=== PATIENT | male | born 2000 | race Caucasian/White ===

== ENCOUNTER 2018-04-01 16:28 | Emergency (ER) | payer OTHER ==
[2018-04-01 16:36] VITALS: BP 114/77; PULSE 92; TEMP 97.8; BMI 22.3
--- NOTE | 2018-04-01 16:36 | PDOC ---
Rapid Medical Evaluation Time Seen by Provider: 04/01/18 16:33 Medical Evaluation: 04/01/18 16:33 I have performed a brief in-person evaluation of this patient. The patient presents with a chief complaint of:injured right middle finger jammed it playing ball yesterday Pertinent physical exam findings:TTP right 3rd digit , limited ROM nv intact, I have ordered the following:finger xray right 3rd digit The patient will proceed to the ED for further evaluation.
--- NOTE | 2018-04-01 17:35 | PDOC ---
History of Present Illness - General Chief Complaint: Injury Stated Complaint: SWOLLEN FINGER Time Seen by Provider: 04/01/18 16:33 History Source: Patient Exam Limitations: No Limitations - History of Present Illness Initial Comments: 04/01/18 17:30 While playing basketball yesterday, jammed his right middle finger. Complaints of pain and swelling to the PIP of right third digit. Use ice packs but did not resolve pain Occurred: reports: yesterday Severity: reports: mild, moderate Pain Location: reports: upper extremity (third digit right) Method of Injury: Yes: direct blow Modifying Factors: improves with: None Loss of Consciousness: no loss of consciousness Associated Symptoms (Fall): denies symptoms Past History - Travel Traveled outside of the country in the last 30 days: No Close contact w/someone who was outside of country & ill: No - Past Medical History Allergies/Adverse Reactions: Allergies Allergy/AdvReac Type Severity Reaction Status Date / Time strawberry Allergy Verified 04/01/18 16:36 Home Medications: Ambulatory Orders Chlorpromazine [Thorazine -] 25 mg PO TID 04/01/18 Clonidine HCl 0.1 mg PO ASDIR 04/01/18 Sertraline HCl 100 mg PO ASDIR 04/01/18 Sertraline HCl [Zoloft -] 50 mg PO DAILY 04/01/18 Asthma: Yes COPD: No CHF: No Psychiatric Problems: Yes - Suicide/Smoking/Psychosocial Hx Smoking History: Never smoked Information on smoking cessation initiated: No Hx Alcohol Use: No Drug/Substance Use Hx: No Substance Use Type: None Review of Systems - Review of Systems Able to Perform ROS?: Yes Is the patient limited Sen[place]e proficient: Yes Constitutional: Yes: See HPI. No: Symptoms Reported Musculoskeletal: Yes: Symptoms Reported, See HPI, Joint Pain, Joint Swelling, Joint Stiffness Integumentary: Yes: Symptoms Reported (right third digit) Neurological: No: Symptoms reported *Physical Exam - Vital Signs Last Vital Signs Temp Pulse Resp BP Pulse Ox 97.8 F 92 H 17 114/77 100 04/01/18 16:34 04/01/18 16:34 04/01/18 16:34 04/01/18 16:34 04/01/18 16:34 - Physical Exam General Appearance: Yes: Nourished, Appropriately Dressed, Apparent Distress HEENT: positive: KATE, Normal ENT Inspection, TMs Normal Neck: positive: Supple. negative: Tender Musculoskeletal: positive: Normal Inspection Integumentary: positive: Swelling (right third digit swollen and ecchymotic at PIP. Range of motion intact although is painful to flex and extend), Ecchymosis , Bruising. 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 *DC/Admit/Observation/Transfer Diagnosis at time of Disposition: Sprain of finger, right Qualifiers: Encounter type: initial encounter Finger: middle finger Sprain of finger site: interphalangeal joint Qualified Code(s): S63.632A - Sprain of interphalangeal joint of right middle finger, initial encounter - Discharge Dispostion Disposition: HOME Condition at time of disposition: Stable Decision to Admit order: No - Referrals - Patient Instructions Printed Discharge Instructions: DI for Finger Sprain Additional Instructions: Rest, ice to area on and off for 15 minutes 4-6 times a day Avoid heavy lifting or exercise until pain and swelling is resolved or until further directed Keep area highly elevated to reduce swelling Use splints/Anthony wrap as directed Followup with orthopedist in one to 2 days if not improving, if significantly improved may wait one week for followup with orthopedist May use ibuprofen 2-200 mg tablets every 6 hours as needed for pain - Post Discharge Activity Forms/Work/School Notes: Back to School
== END 2018-04-01 17:40 | disposition home or self-care (01) ==
LOC: JERFT 16:28
PROC: 2W3JX1Z Immobilization of Right Finger using Splint (ICD-10-PCS; principal; 2018-04-01)
DX: S63.632A Sprain of interphalangeal joint of right middle finger, initial encounter (principal); X58.XXXA Exposure to other specified factors, initial encounter; Y93.89 Activity, other specified; Y92.89 Other specified places as the place of occurrence of the external cause; J45.909 Unspecified asthma, uncomplicated
CPT/HCPCS: 73140-TC-RT-FY; 99281-25

== ENCOUNTER 2022-10-02 00:23 | Emergency (ER) | payer OTHER ==
[2022-10-02 00:30] VITALS: RESP 16; BMI 28.3
[2022-10-02 04:17] LABS: URINE APPEARANCE CLEAR; URINE BILIRUBIN NEGATIVE (NEGATIVE); URINE COLOR YELLOW; URINE GLUCOSE (UA) NEGATIVE (NEGATIVE); URINE KETONE TRACE (NEGATIVE); URINE LEUK ESTERASE NEGATIVE (NEGATIVE); URINE NITRITE NEGATIVE (NEGATIVE); URINE PROTEIN NEGATIVE (NEGATIVE)
[2022-10-02] MEDS ORDERED: FAMOTIDINE 20 MG/50 ML IVPB 20 MG/50 ML MG IVPB ONE ×2 (05:44→05:53)
[2022-10-02] MEDS ORDERED: MAG HYDROX/AL HYDROX/SIMETH -MYLANTA- ORAL SUSPENSION PO ONE (05:44)
[2022-10-02] MEDS ORDERED: ACETAMINOPHEN 1000 MG/100 ML BAG IVPB ONE (05:44)
[2022-10-02] MEDS ORDERED: SODIUM CHLORIDE 0.9% 500 ML INFUS.BAG IV ONE (05:44)
[2022-10-02] MEDS ORDERED: ACETAMINOPHEN INJECTION 100 ML IVPB ONE (05:53)
[2022-10-02] MEDS ORDERED: MAG HYDROX/AL HYDROX/SIMETH 30 ML UNIT-DOSE CUP ONE (05:53)
[2022-10-02 06:36] LABS: BASO % 0.5 % (0-2.0); EOS % 2.2 % (0-4.5); HEMOGLOBIN 13.4 GM/dL (11.7-16.9); LYMPH % 9.8 % (8-40); MCH 30.2 pg (25.7-33.7); MCHC 35.1 g/dl (32.0-35.9); MEAN CELL VOLUME 85.8 fl (80-96); MEAN PLT VOLUME 8.8 fl (7.5-11.1); MONO % 7.5 % (3.8-10.2); PLATELET COUNT 223 10^3/uL (134-434); RBC 4.43 M/mm3 (4.00-5.60); RDW 13.5 % (11.9-15.9); WHITE BLOOD COUNT 14.7 K/mm3 (4.0-10.0)
[2022-10-02 06:49] LABS: ALBUMIN 3.4 g/dl (3.4-5.0); CALCIUM 8.8 mg/dL (8.5-10.1)
[2022-10-02 06:52] LABS: CREATININE 0.8 mg/dL (0.55-1.3)
[2022-10-02 06:54] LABS: BILIRUBIN,TOTAL 0.9 mg/dL (0.2-1); TOT PROT 6.7 g/dl (6.4-8.2)
[2022-10-02] MEDS ORDERED: DEXTROSE 5%-0.45% SALINE 1,000 ML IV SCH (13:15)
[2022-10-02] MEDS ORDERED: LACTATED RINGERS SOLUTION 1,000 ML/1,000 ML INFUS.BAG IV SCH (14:00)
[2022-10-02] MEDS ORDERED: CEFTRIAXONE 1 GM in DEXTROSE 5%-WATER - 50 ML IVPB SCH (14:45)
[2022-10-02 17:28] VITALS: TEMP 98
[2022-10-02 17:46] LABS: ALBUMIN 3.1 g/dl (3.4-5.0); CALCIUM 8.8 mg/dL (8.5-10.1)
[2022-10-02 17:47] LABS: BLOOD UREA NITROGEN 13.2 mg/dL (7-18)
[2022-10-02 17:49] LABS: CREATININE 0.8 mg/dL (0.55-1.3)
[2022-10-02 17:51] LABS: BILIRUBIN,TOTAL 0.7 mg/dL (0.2-1); TOT PROT 6.3 g/dl (6.4-8.2)
[2022-10-02 22:18] VITALS: BP 110/72; PULSE 72
== END 2022-10-02 22:17 | disposition left against medical advice (07) ==
LOC: JER 00:23
DX: K81.0 Acute cholecystitis (principal); R30.0 Dysuria; R10.13 Epigastric pain
CPT/HCPCS: 0241U-QW; 36415; 74177-TC; 76705-TC; 80053; 81003; 83690; 85025; 87086; 99285-25